=== PATIENT | female | born 1975 | race Caucasian/White ===

== ENCOUNTER → 2016-08-23 | Outpatient (CLI) | payer OTHER ==
--- NOTE | 2016-08-23 13:03 | MA ---
Diagnostic Bilateral Digital Mammogram With Tomosynthesis Clinical Indications: Left breast lump Technique: Standard digital cephalocaudal and tomosynthesis mediolateral oblique projections were ob tained. A spot magnification view is performed over the outer left breast. The digital images were pr ocessed by the [employer] computer aided detection system. Comparison: None. Breast density: B Findings: CAD was reviewed. No suspicious findings are identified in either breast. A small cluster of microcalcifications in the far outer left breast are less distinct on the spot magnification view, where they are immediately adjacent to a vessel. There are not identified on the true lateral film s creen view. Impression: 1. No correlate to a palpable lump in the left breast. We will proceed to ultrasound (BI- RADS 0). 2. Microcalcifications in the far outer right breast are probably benign. Recommend six-month follow- up left breast diagnostic mammogram to ensure stability (BI-RADS 3). BI-RADS 0: Additional imaging of the left breast with ultrasound to evaluate a palpable lump. A final recommendation regarding the "palpable lump" will be given on the ultrasound report. [facility] will send a result letter to the patient. Negative mammography should not preclude additional workup of a clinically suspicious finding. The patient's information is entered into a reminder system with a target due date for her next mammo gram.
--- NOTE | 2016-08-23 13:16 | US ---
Ultrasound Left Breast Ultrasound History: Palpable lump upper outer quadrant Technique: I first performed a directed physical examination. This was followed by ultrasound exam with a high frequency linear transducer. Findings: Physical examination of the entire left breast and axilla is negative. Ultrasound of the en tire breast and axillary segment are negative except for a tiny nonpalpable cyst at the 12:00 radial, 4 cm from the nipple which measures 2.1 mm. Impression: 1. Negative physical exam, mammogram and ultrasound. The patient should return to the [facility] examining physician to ensure that the lump has disappeared on that person's exam. Assuming suni t that is the case, then recommend 6 month follow-up diagnostic left mammogram to reevaluate a small cluster of probably benign calcifications in the far outer left breast . If present again on reexamin ation by the patient's health care practitioner, then the patient's lump should be managed clinically . I also suggested that the patient return for repeat imaging of the lump recurs and/or is larger. Results and recommendation were discussed with the patient in detail, who is in agreement with the pl an. BI-RADS 3. Probably benign.
== END ==
LOC: FIMAGING 11:39
PROVIDERS: ATTEND Obstetrics & Gynecology
DX: Z12.39 Encounter for other screening for malignant neoplasm of breast (principal); R92.0 Mammographic microcalcification found on diagnostic imaging of breast
CPT/HCPCS: G0204

== ENCOUNTER → 2017-03-26 | Outpatient (CLI) | payer OTHER | LOC: FIMAGING 11:23 | PROVIDERS: ATTEND Obstetrics & Gynecology | DX: N63 Unspecified lump in breast (principal) | CPT/HCPCS: G0206 ==